=== PATIENT | male | born 1970 | race Caucasian/White ===

== ENCOUNTER 2017-01-10 15:07 | Emergency (ER) | payer OTHER ==
[~2017-01-10] VITALS: Ht 177.8 cm; Wt 88.0 kg
[2017-01-10 15:10] VITALS: BP 125/77; PULSE 92; RESP 17; TEMP 98; O2SAT 95
[2017-01-10] MEDS ORDERED: AMOXICILLIN/CLAVULANATE POTASSIUM 875 MG TABLET PO ONE (15:30)
[2017-01-10] MEDS ORDERED: IBUPROFEN 600 MG TABLET PO ONE (15:30)
[2017-01-10 15:35] VITALS: RESP 20; O2SAT 95
== END 2017-01-10 15:44 | disposition home or self-care (01) ==
LOC: SED 15:07
DX: J40 Bronchitis, not specified as acute or chronic (principal)
CPT/HCPCS: 99283